=== PATIENT | female | born 1985 | race Caucasian/White ===

== ENCOUNTER 2022-06-21 11:25 | Inpatient (IN) ==
[~2022-06-21 11:25] MED LIST: Famotidine 20 MG/2 ML VIAL IVP PRN; Metoclopramide 10 MG/2 ML VIAL IVP PRN; Naloxone 0.4 MG/ML INJ IVP PRN; Ondansetron 4 MG/2 ML VIAL IVP PRN
[2022-06-21] MEDS ORDERED: Ringers Solution, Lactated 1,000 ML IVC SCH (11:30)
[2022-06-21] MEDS ORDERED: Oxytocin 30 UNIT/503 ML BAG IVC ONE (11:51)
[2022-06-21 11:58] LABS: Basophils # 0.1 K/mcL (0.0-0.2); Basophils % 0.4 %; Eosinophils # 0.1 K/mcL (0.0-0.6); Eosinophils % 0.7 %; Hemoglobin 11.2 g/dL (11.5-15.4); Immature Granulocytes % 1.1 % (0-4); Lymphocytes # 2.8 K/mcL (0.6-4.6); Lymphocytes % 19.1 %; Mean Corpuscular HGB Conc 32.9 g/dL (31.6-35.5); Mean Corpuscular Hemoglobin 28.9 pg (28.0-33.3); Mean Corpuscular Volume 87.9 fL (83.0-100.0); Mean Platelet Volume 9.7 fL (9.4-12.4); Monocytes # 1.1 K/mcL (0.0-1.3); Monocytes % 7.1 %; Neutrophils # 10.7 K/mcL (1.6-8.9); Platelet Count 345 K/mcL (140-400); Red Blood Count 3.87 M/mcL (3.82-4.97); Red Cell Distribution Width 13.8 % (11.5-14.5); Segmented Neutrophils % 71.6 %; White Blood Count 14.9 K/mcL (4.3-11.1)
[2022-06-21] MEDS ORDERED: Ibuprofen 600 MG TABLET PO ONE (13:09)
[2022-06-21] MEDS ORDERED: Lanolin 7 G OINT...G. TP PRN (14:22)
[2022-06-21] MEDS ORDERED: Benzocaine/Menthol 56 GM AEROSOL SPRAY TP PRN (14:22)
[2022-06-21] MEDS ORDERED: Ondansetron ODT 4 MG TAB.RAPDIS SL PRN (14:22)
[2022-06-21] MEDS ORDERED: Oxytocin 30 UNIT/503 ML BAG IVC SCH (14:30)
[2022-06-21] MEDS: Acetaminophen 325 MG TABLET PO SCH (22:32)
[2022-06-21] MEDS: Ibuprofen 600 MG TABLET PO SCH (22:33)
[2022-06-22 03:55] LABS: Basophils # 0.1 K/mcL (0.0-0.2); Basophils % 0.6 %; Eosinophils # 0.2 K/mcL (0.0-0.6); Eosinophils % 1.1 %; Hematocrit 28.1 % (35.3-44.9); Immature Granulocytes % 1.3 % (0-4); Lymphocytes # 3.4 K/mcL (0.6-4.6); Lymphocytes % 23.5 %; Mean Corpuscular HGB Conc 33.1 g/dL (31.6-35.5); Mean Corpuscular Hemoglobin 29.2 pg (28.0-33.3); Mean Corpuscular Volume 88.4 fL (83.0-100.0); Mean Platelet Volume 9.5 fL (9.4-12.4); Monocytes # 0.9 K/mcL (0.0-1.3); Monocytes % 6.6 %; Neutrophils # 9.6 K/mcL (1.6-8.9); Platelet Count 283 K/mcL (140-400); Red Blood Count 3.18 M/mcL (3.82-4.97); Red Cell Distribution Width 13.9 % (11.5-14.5); Segmented Neutrophils % 66.9 %; White Blood Count 14.4 K/mcL (4.3-11.1)
[2022-06-22 03:56] LABS: Hemoglobin 9.3 g/dL (11.5-15.4)
[2022-06-22] MEDS: Acetaminophen 325 MG TABLET PO SCH ×2 (04:46→08:36)
[2022-06-22] MEDS: Ibuprofen 600 MG TABLET PO SCH (04:46)
[2022-06-22 07:23] VITALS: BP 117/75; PULSE 85; TEMP 98.6; O2SAT 96
[2022-06-22] MEDS ORDERED: Prenatal Vit/FA 1 EACH TABLET PO SCH (09:00)
== END 2022-06-22 13:06 | disposition home or self-care (01) | DRG 806 ==
LOC: 1NENULAB → 1NENUOBS 14:16
PROVIDERS: ADMIT Obstetrics & Gynecology; ATTEND Obstetrics & Gynecology